=== PATIENT | female | born 1970 | race Caucasian/White ===

== ENCOUNTER 2019-03-21 05:58 | Emergency (ER) | payer BC ==
[2019-03-21] MEDS ORDERED: Morphine 4 MG/ML VIAL ONE (06:30)
[2019-03-21] MEDS ORDERED: Promethazine HCl 25 MG/ML VIAL ONE (06:31)
--- NOTE | 2019-03-21 07:42 | CT ---
CT CERVICAL SPINE: Date: 03/21/19 PROVIDED CLINICAL HISTORY: Left arm paresthesia. FINDINGS: No evidence for fracture or traumatic subluxation. No prevertebral soft tissue swelling apparent. The visualized lung apices appear clear. No severe central canal or foraminal narrowing is apparent by C T. IMPRESSION: No evidence for fracture or traumatic subluxation. POS: OFF
--- NOTE | 2019-03-21 07:53 | CT ---
CT THORACIC SPINE: Date: 03/21/19 PROVIDED CLINICAL HISTORY: Left upper back pain. FINDINGS: Thoracic alignment appears normal. Vertebral body heights appear preserved. No lytic or blastic proce sses are seen. The visualized extraspinal soft tissues appear unremarkable. No severe central canal o r foraminal narrowing is apparent by CT. IMPRESSION: No evidence for an acute osseous abnormality. POS: OFF
[2019-03-21] MEDS ORDERED: Ketorolac Tromethamine 60 MG/2 ML VIAL ONE (08:14)
== END 2019-03-21 08:50 | disposition home or self-care (01) ==
LOC: SCSER 05:58
DX: M54.12 Radiculopathy, cervical region (principal); I10 Essential (primary) hypertension; Z79.899 Other long term (current) drug therapy
CPT/HCPCS: 72125; 72128; 96372; J1885; J2270; J2550

== ENCOUNTER 2021-09-29 10:04 | Outpatient (CLI) | payer BC | END 2021-09-29 10:05 | disposition home or self-care (01) | LOC: SCSMRI 10:04 | PROVIDERS: ATTEND Family Medicine | DX: M50.10 Cervical disc disorder with radiculopathy, unspecified cervical region (principal); M48.02 Spinal stenosis, cervical region | CPT/HCPCS: 72141 ==